=== PATIENT | female | born 1980 | race African-American/Black ===

== ENCOUNTER 2017-03-14 23:40 | Inpatient (IN) | payer OTHER ==
[~2017-03-14 23:40] MED LIST: CITRIC ACID/SODIUM CITRATE 30 ML UNIT-DOSE CUP PO ONE; ELECTROLYTE-148 SOLN 500 ML IV ONE
[2017-03-15] MEDS ORDERED: ELECTROLYTE-148 SOLN 1,000 ML IV SCH (00:09)
[2017-03-15 01:30] VITALS: BMI 27.1
[2017-03-15] MEDS ORDERED: ZIDOVUDINE INJECTION 1,000 MG in DEXTROSE 5%-WATER - 150 ML IVPB SCH ×2 (05:00→05:31)
[2017-03-15] MEDS ORDERED: ONDANSETRON 4 MG/2 ML VIAL IVPB PRN (09:51)
[2017-03-15] MEDS ORDERED: BENZOCAINE 20% 57 GM BOTTLE TP PRN (09:53)
[2017-03-15] MEDS ORDERED: ACETAMINOPHEN 1000 MG/100 ML VIAL (NON FORMULARY) IVPB PRN (09:53)
[2017-03-15] MEDS ORDERED: diphenhydrAMINE HCL 25 MG CAPSULE (FP) PO PRN (09:53)
[2017-03-15] MEDS ORDERED: IBUPROFEN 600 MG TABLET (FP) PO PRN (09:53)
[2017-03-15] MEDS ORDERED: IBUPROFEN 800 MG/8 ML IJ IVPB PRN ×2 (09:53)
[2017-03-15] MEDS ORDERED: BENZOCAINE 28 GM HEMORRHOIDAL OINTMENT PR PRN (09:53)
[2017-03-15] MEDS ORDERED: WITCH HAZEL 50% (TUCKS) 40 PAD/JAR PAD TP PRN (09:53)
[2017-03-15] MEDS ORDERED: METHYLERGONOVINE MALEATE 0.2 MG/1 ML AMP IM PRN (09:53)
[2017-03-15] MEDS ORDERED: SIMETHICONE 80 MG TAB.CHEW (FP) PO PRN (09:53)
[2017-03-15] MEDS ORDERED: RALTEGRAVIR POTASSIUM 400 MG TAB PO SCH (10:00)
[2017-03-15] MEDS ORDERED: FOSAMPRENAVIR CALCIUM 700 MG TABLET PO SCH (10:00)
[2017-03-15] MEDS ORDERED: OXYTOCIN 20 UNITS in 0.9% NS 1,000 ML IV SCH (10:00)
--- NOTE | 2017-03-15 10:09 | HP ---
Past Medical History - Primary Care Physician PCP:: Guille Penn - Admission Chief Complaint: 39 weeks, previous c/s , ama, hiv positve , request of repeat c/s History of Present Illness: 36 yo f 012 edc 03/21/17 39 weeks, previous c/s , hiv positive, requesting repeat c/s, risks discussed, encouraged, declined aware all risks associated with c/s History Source: Patient Limitations to Obtaining History: No Limitations - Past Medical History ...: 4 ...Para: 2 ...Term: 2 ...: 0 ...Spon : 0 ...Induced : 1 ...Multiple Gestation: 0 ...LMP: 06/05/16 ... Weeks Gestation by Dates: 40 ...EDC by Dates: 03/12/17 ...EDC by Sono: 03/21/17 Infectious Disease: Yes: HIV, STD's (txed for chalmydia in the past) - Past Surgical History Past Surgical History: Yes: Hx Myomectomy: No Hx Transabdominal Cerclage: No - Smoking History Smoking history: Never smoked Have you smoked in the past 12 months: No Aproximately how many cigarettes per day: 3 If you are a former smoker, when did you quit?: Approx. 1 year ago. - Alcohol/Substance Use Hx Alcohol Use: No - Social History Usual Living Arrangement: Yes: With Spouse History of Recent Travel: No Home Medications - Allergies Allergies/Adverse Reactions: Allergies Allergy/AdvReac Type Severity Reaction Status Date / Time No Known Allergies Allergy Verified 03/15/17 00:41 - Home Medications Home Medications: Ambulatory Orders Vit Calc,Iron,Folic [ Vitamins] 1 each PO DAILY #30 tablet Emtricitabine/Tenofovir [Truvada -] 1 tab PO DAILY #30 tablet 02/24/17 Raltegravir [Isentress] 400 mg PO BID #60 tab 02/24/17 Fosamprenavir Calcium [Lexiva -] 1,400 mg PO BID 03/15/17 Family Disease History - Family Disease History Family Disease History: Other: Grandparent (unk), Father (a&w, htn - stable), Mother (hiv), Brother (6 a&w), Sister (4 a&w), Son (1 a&w), Daughter (1 a&w) Review of Systems - Review of Systems Constitutional: reports: No Symptoms Eyes: reports: No Symptoms HENT: reports: No Symptoms Neck: reports: No Symptoms Cardiovascular: reports: No Symptoms Respiratory: reports: No Symptoms Gastrointestinal: reports: No Symptoms Genitourinary: reports: No Symptoms Breasts: reports: No Symptoms Reported Musculoskeletal: reports: No Symptoms Integumentary: reports: No Symptoms Neurological: reports: No Symptoms Endocrine: reports: No Symptoms Psychiatric: reports: No Symptoms Physical Exam - Maternity Vital Signs: Vital Signs Temperature 98.0 F 03/15/17 05:35 Pulse Rate 67 03/15/17 07:00 Respiratory Rate 20 03/15/17 07:00 Blood Pressure 120/74 03/15/17 07:00 O2 Sat by Pulse Oximetry (%) Constitutional: Yes: Well Nourished, No Distress, Calm Eyes: Yes: WNL, Conjunctiva Clear, EOM Intact HENT: Yes: WNL, Atraumatic, Normocephalic Neck: Yes: WNL, Supple, Trachea Midline Cardiovascular: Yes: WNL, Regular Rate and Rhythm Breast(s): Yes: WNL - Abdominal Exam/OB Fundal Height: 40 Number of Fetuses: Single Presentation: Vertex Contractions: No Intensity: Unaware Monitor Mode: External Heart Rate Location: [facility] Category: I Accelerations: Uniform Decelerations: None - Vaginal Exam/OB Vaginal Bleediing: No Speculum Exam: No Dilatation (cm): closed Effacement (%): 0 Amniotic Membrane Status: Intact Presentation: Vertex/Position Station: -3 - Physical Exam Musculoskeletal: Yes: WNL Extremities: Yes: WNL Edema: Yes Edema: LLE: Trace, RLE: Trace Psychiatric: Yes: WNL Hemorrhage Risk Assessment - Risk Factors Medium Risk Factors: Yes: Prior , uterine surgery,or multiple laparotomies Risk Score: 1 Risk Level: Medium Risk Problem List - Problems (1) with 39 completed weeks gestation Code(s): Z3A.39 - 39 WEEKS GESTATION OF (2) Previous section Code(s): Z98.891 - HISTORY OF UTERINE SCAR FROM PREVIOUS SURGERY (3) HIV (human immunodeficiency virus) risk factors complicating Code(s): O09.899 - SUPERVISION OF OTHER HIGH RISK PREGNANCIES, UNSP TRIMESTER Assessment/Plan antiviral meds preop, repeat c/s rba discussed
--- NOTE | 2017-03-15 10:15 | SURG ---
Surgery Splunk Developer Note Splunk Developer: Keith Marsh PA-C Date of Service: 03/15/17 Diagnosis: 39 weeks, previous c/s , hiv positive, requesting repeat c/s Procedure: section I was present for the entirety of the operative procedure. For further detail, please refer to operative report. Visit type - Case Type Case Type: Scheduled Admission - New patient This patient is new to me today: Yes Date on this admission: 03/15/17
[2017-03-15] MEDS: PRENATAL VITAMINS W/ FOLIC ACID TABLET (FP) PO SCH (12:56)
[2017-03-15] MEDS: EMTRICITABINE 200MG/TENOFOVIR 300MG PO SCH (12:56)
--- NOTE | 2017-03-15 15:55 | PN ---
Progress Note (short form) - Note Progress Note: ID consult dictated imp/reccd 36 year old female HIV positive admitted for elective she has been taking truvada/isentress/kaletra and her viral load is suppressed please resume her HIV meds no breast feeding follow up [facility]
[2017-03-15] MEDS: CEFAZOLIN (PRE-DOCKED) 50 ML IVPB SCH (17:41)
[2017-03-15] MEDS ORDERED: DEXTROSE 5%-LACTATED RINGERS 1,000 ML IV SCH (18:00)
--- NOTE | 2017-03-15 18:23 | CONS ---
DATE OF CONSULTATION: DATE OF DICTATION: 03/15/2017 INFECTIOUS DISEASE CONSULTATION REQUESTING PHYSICIAN: Guille Penn M.D. CONSULTING PHYSICIAN: Erin Monae M.D. HISTORY OF PRESENT ILLNESS: This is a 36-year-old woman with stable HIV disease who I follow in the clinic. She was just admitted this morning and is status post . I am asked to see her for resumption of her antiretroviral therapy. She has done very well through the . She has been on Kaletra, Isentress, and Truvada with a CD4 count of 378 and an undetectable viral load as of February 24, 2017. Post she is resting comfortably. She has no complaints. She notes some mild itching due to the morphine that she received at the time of , otherwise she is feeling fine. PAST MEDICAL HISTORY: Notable for stable HIV disease. She has a history of chlamydia in the past. She had a prior child, she has had a . She has 2 children, both of whom at home are HIV negative. She has no known drug allergies. Her medications as an outpatient include vitamins, Truvada, Isentress, and Kaletra. SOCIAL HISTORY: She lives with her significant other. She has 2 children. She does not use cigarettes. She has no history of any substance use. She stopped smoking about a year ago. FAMILY HISTORY: Positive for HIV in her mother. Her father is alive and well with hypertension. Her children are in good health and are HIV negative. REVIEW OF SYSTEMS: She currently reports some mild itching, otherwise feels fine. PHYSICAL EXAMINATION: General: She is awake and alert. Vital signs: Temperature 97.6, pulse 66, blood pressure 117/73, respiratory rate 20. HEENT: Normocephalic. Eyes are anicteric. Neck: Supple. Lungs: Clear to auscultation. Heart: Regular rate and rhythm. Abdomen: She is receiving Pitocin. I did not do an abdominal exam. Extremities: Trace edema. LABORATORY: Her white count is 10.2, hemoglobin 11.5, platelets 250, BUN and creatinine are 10 and 0.7. Her T cells as stated are 378 with an undetectable viral load. IMPRESSION: In summary, this is a 36-year-old woman with stable human immunodeficiency virus disease, undetectable viral load, on antiretroviral treatment. I would recommend we resume her human immunodeficiency virus medications, no of which she is aware, and she has scheduled followup. Thank you for this referral. ERIN MONAE M.D. [id number] MTDD
[2017-03-16] MEDS: CEFAZOLIN (PRE-DOCKED) 50 ML IVPB SCH (01:27)
--- NOTE | 2017-03-16 01:46 | OP ---
DATE OF OPERATION: 03/15/2017 PREOPERATIVE DIAGNOSIS: at 39 weeks, previous section, history of HIV-positive, requests repeat section. POSTOPERATIVE DIAGNOSIS: at 39 weeks, previous section, history of HIV-positive, requests repeat section. PROCEDURE: Repeat low segment transverse section. SURGEON: Varun Mena MD SENIOR ATTORNEY: QI Bah ESTIMATED BLOOD LOSS: 500 mL. FINDINGS: Live baby girl, right occiput transverse position. OPERATION: Patient was taken to the operating room and under adequate spinal anesthesia the abdomen and perineum were prepped and draped. Pfannenstiel abdominal incision was made over the previous incision. Abdominal wall was cut layer by layer and the anterior peritoneum was exposed and incised. Upon entering the abdominal cavity, the lower uterine segment was identified. The uterovesical fold in the peritoneum was established. Bladder was pushed down and a low transverse uterine incision was made. The incision was extended laterally. Amniotic sac was entered with clear fluids. Head was brought from right occiput transverse position and delivered without any difficulty. The nasopharynx was suctioned and live baby was delivered. 's of 9 and 10. Placenta was delivered manually. Uterine cavity was cleared of all remaining tissue. Uterine incision was closed in 2 layers, first layer with 0 Biosyn continuous suture and the second layer with 0 Biosyn imbricating the first layer. Bladder flap was closed with 0 Biosyn continuous suture. Both tubes and ovaries were seen and normal. No active bleeding was seen. All of the lap pads, sponge, and instrument counts were correct. The peritoneum was closed with 0 Biosyn continuous suture. Muscles were brought together with interrupted suture of 0 Biosyn. The fascia was closed with 0 Biosyn continuous suture. Subcutaneous fat interrupted suture of 3-0 Vicryl and the skin was closed with 4-0 Biosyn subcuticular continuous suture. Patient tolerated the procedure well and left the OR in good condition. VARUN MENA M.D. /[id number]
--- NOTE | 2017-03-16 08:38 | PN ---
Post Progress Note - Subjective Subjective: c/o pain scale 3/10 voiding without difficulty Post Day: 1 Type of Delivery: Repeat C/S Vital Signs: Vital Signs Temperature 98.4 F 03/16/17 05:29 Pulse Rate 69 03/16/17 05:29 Respiratory Rate 18 03/16/17 05:45 Blood Pressure 127/67 03/16/17 05:29 O2 Sat by Pulse Oximetry (%) 100 03/15/17 11:00 Breast Exam: Yes: Soft, Other (bottle feeding ). No: Engorged Uterus: Yes: Fundus Firm, Fundus below umbilicus, Non-tender Incision: Yes: Dressing dry and intact. No: Redness, Oozing Abdomen/GI: Yes: Abdomen soft, Passing flatus, Tolerating PO (diet ). No: Abdominal Distention, Tender Lochia: Yes: Rubra Lochia, amount: Moderate Extremities: Yes: Calves non-tender Perineum: Yes: Intact Activity: Ambulating Assessment/Plan stable . post op cbc pending. antiviral meds as per MD for Infectious disease.
[2017-03-16 08:49] LABS: BASOPHIL 0.1 % (0-2.0); EOSINOPHIL 0.2 % (0-4.5); MCH 27.3 pg (25.7-33.7); MCHC 32.9 g/dl (32.0-36.0); MEAN CELL VOLUME 83.2 fl (80-96); MEAN PLT VOLUME 8.3 fl (7.5-11.1); NEUTROPHILS 76.8 % (42.8-82.8); PLATELET COUNT 186 K/MM3 (134-434); RDW 13.9 % (11.6-15.6); WHITE BLOOD COUNT 11.8 K/mm3 (4.0-10.0)
[2017-03-16] MEDS ORDERED: BISACODYL 10 MG SUPP.RECT RC PRN (09:58)
[2017-03-16] MEDS: RITONAVIR/LOPINAVIR 50MG/200MG 1 COMBO TABLET PO SCH ×2 (10:33→21:21)
[2017-03-16] MEDS: ENOXAPARIN NA (PORCINE) 40 MG/0.4 ML DISP.SYRIN SQ SCH (10:34)
[2017-03-16] MEDS: EMTRICITABINE 200MG/TENOFOVIR 300MG PO SCH (10:34)
[2017-03-16] MEDS: PRENATAL VITAMINS W/ FOLIC ACID TABLET (FP) PO SCH (10:34)
[2017-03-16] MEDS: RALTEGRAVIR POTASSIUM 400 MG TAB PO SCH ×2 (10:34→21:21)
[2017-03-16] MEDS: oxyCODONE HCL 5 MG TABLET PO PRN ×3 (10:42→21:20)
--- NOTE | 2017-03-16 11:07 | PN ---
Progress Note (short form) - Note Progress Note: Post op day#1.S/P C section under spinal anesthesia with duramorph uneventful.Patient stable and has little pain for which she is on medication.No any anesthesia related problem.Patient Dc from the anesthesia care.
--- NOTE | 2017-03-17 06:27 | PN ---
Post Progress Note Post Day: 3 Type of Delivery: Repeat C/S Vital Signs: Vital Signs Temperature 98.9 F 03/16/17 22:00 Pulse Rate 90 03/16/17 22:00 Respiratory Rate 18 03/16/17 22:00 Blood Pressure 126/76 03/16/17 22:00 O2 Sat by Pulse Oximetry (%) 100 03/15/17 11:00 Breast Exam: Yes: Soft Uterus: Yes: Fundus Firm Incision: Yes: Sutures intact Abdomen/GI: Yes: Abdomen soft Lochia: Yes: Rubra Lochia, amount: Small Extremities: Yes: Calves non-tender Perineum: Yes: Intact Activity: Ambulating - Labs Labs: CBC WBC 11.8 K/mm3 (4.0-10.0) H 03/16/17 07:45 RBC 3.69 M/mm3 (3.60-5.2) 03/16/17 07:45 Hgb 10.1 GM/dL (10.7-15.3) L D 03/16/17 07:45 Hct 30.7 % (32.4-45.2) L 03/16/17 07:45 MCV 83.2 fl (80-96) 03/16/17 07:45 MCHC 32.9 g/dl (32.0-36.0) 03/16/17 07:45 RDW 13.9 % (11.6-15.6) 03/16/17 07:45 Plt Count 186 K/MM3 (134-434) 03/16/17 07:45 MPV 8.3 fl (7.5-11.1) 03/16/17 07:45 Neutrophils % 76.8 % (42.8-82.8) 03/16/17 07:45 Lymphocytes % 15.2 % (8-40) 03/16/17 07:45 Monocytes % 7.7 % (3.8-10.2) 03/16/17 07:45 Eosinophils % 0.2 % (0-4.5) 03/16/17 07:45 Basophils % 0.1 % (0-2.0) 03/16/17 07:45 Assessment/Plan doing well appreciate consult form ID pain control [email or web address]
[2017-03-17] MEDS: ENOXAPARIN NA (PORCINE) 40 MG/0.4 ML DISP.SYRIN SQ SCH (09:13)
[2017-03-17] MEDS: PRENATAL VITAMINS W/ FOLIC ACID TABLET (FP) PO SCH (09:14)
[2017-03-17] MEDS: oxyCODONE HCL 5 MG TABLET PO PRN (09:14)
[2017-03-17] MEDS: RITONAVIR/LOPINAVIR 50MG/200MG 1 COMBO TABLET PO SCH ×2 (09:17→22:07)
[2017-03-17] MEDS: EMTRICITABINE 200MG/TENOFOVIR 300MG PO SCH (09:18)
[2017-03-17] MEDS: RALTEGRAVIR POTASSIUM 400 MG TAB PO SCH ×2 (09:18→22:07)
[2017-03-17] MEDS ORDERED: SENNOSIDES/DOCUSATE COMBO (SENNA PLUS) TABLET (UD) PO PRN (22:00)
--- NOTE | 2017-03-18 05:22 | PN ---
Progress Note (short form) - Note Progress Note: pod3 doing well, voids ok, passing gas CBC, BMP 03/16/17 07:45 Last Vital Signs Temp Pulse Resp BP Pulse Ox 98.3 F 84 20 113/65 100 03/17/17 21:12 03/17/17 21:12 03/17/17 21:12 03/17/17 21:12 03/15/17 11:00 abdomen soft, no distension, no cva incision dry, clean no calf tenderness plan cbc today, plan for d/c home in am Problem List - Problems (1) with 39 completed weeks gestation Code(s): Z3A.39 - 39 WEEKS GESTATION OF (2) Previous section Code(s): Z98.891 - HISTORY OF UTERINE SCAR FROM PREVIOUS SURGERY (3) HIV (human immunodeficiency virus) risk factors complicating Code(s): O09.899 - SUPERVISION OF OTHER HIGH RISK PREGNANCIES, UNSP TRIMESTER
[2017-03-18 06:29] LABS: BASOPHIL 0.3 % (0-2.0); EOSINOPHIL 1.5 % (0-4.5); MCH 27.2 pg (25.7-33.7); MCHC 32.5 g/dl (32.0-36.0); MEAN CELL VOLUME 83.8 fl (80-96); MEAN PLT VOLUME 8.1 fl (7.5-11.1); NEUTROPHILS 70.4 % (42.8-82.8); PLATELET COUNT 242 K/MM3 (134-434); WHITE BLOOD COUNT 7.9 K/mm3 (4.0-10.0)
[2017-03-18] MEDS: PRENATAL VITAMINS W/ FOLIC ACID TABLET (FP) PO SCH (09:28)
[2017-03-18] MEDS: RITONAVIR/LOPINAVIR 50MG/200MG 1 COMBO TABLET PO SCH ×2 (09:29→21:28)
[2017-03-18] MEDS: EMTRICITABINE 200MG/TENOFOVIR 300MG PO SCH (09:29)
[2017-03-18] MEDS: RALTEGRAVIR POTASSIUM 400 MG TAB PO SCH ×2 (09:36→21:28)
[2017-03-18] MEDS: ENOXAPARIN NA (PORCINE) 40 MG/0.4 ML DISP.SYRIN SQ SCH (09:37)
--- NOTE | 2017-03-19 08:16 | PN ---
Post Progress Note - Subjective Subjective: no complains , pain scale 1 Post Day: 4 Type of Delivery: Repeat C/S Vital Signs: Vital Signs Temperature 98.1 F 03/18/17 22:00 Pulse Rate 69 03/18/17 22:00 Respiratory Rate 18 03/18/17 22:00 Blood Pressure 119/76 03/18/17 22:00 O2 Sat by Pulse Oximetry (%) 100 03/15/17 11:00 Breast Exam: Yes: Soft. No: Engorged Uterus: Yes: Fundus Firm, Fundus below umbilicus, Non-tender Incision: Yes: Sutures intact. No: Redness, Oozing Abdomen/GI: Yes: Abdomen soft, Passing flatus (bm done ), Tolerating PO (diet ) . No: Abdominal Distention, Tender Lochia: Yes: Rubra Lochia, amount: Moderate Extremities: Yes: Calves non-tender Perineum: Yes: Intact Activity: Ambulating - Labs Labs: CBC WBC 7.9 K/mm3 (4.0-10.0) D 03/18/17 05:50 RBC 4.04 M/mm3 (3.60-5.2) 03/18/17 05:50 Hgb 11.0 GM/dL (10.7-15.3) 03/18/17 05:50 Hct 33.9 % (32.4-45.2) 03/18/17 05:50 MCV 83.8 fl (80-96) 03/18/17 05:50 MCHC 32.5 g/dl (32.0-36.0) 03/18/17 05:50 RDW 14.0 % (11.6-15.6) 03/18/17 05:50 Plt Count 242 K/MM3 (134-434) D 03/18/17 05:50 MPV 8.1 fl (7.5-11.1) 03/18/17 05:50 Neutrophils % 70.4 % (42.8-82.8) 03/18/17 05:50 Lymphocytes % 20.3 % (8-40) D 03/18/17 05:50 Monocytes % 7.5 % (3.8-10.2) 03/18/17 05:50 Eosinophils % 1.5 % (0-4.5) D 03/18/17 05:50 Basophils % 0.3 % (0-2.0) 03/18/17 05:50 Assessment/Plan stable. plan discharge today.
[2017-03-19] MEDS: EMTRICITABINE 200MG/TENOFOVIR 300MG PO SCH (09:23)
[2017-03-19] MEDS: RITONAVIR/LOPINAVIR 50MG/200MG 1 COMBO TABLET PO SCH (09:23)
[2017-03-19] MEDS: PRENATAL VITAMINS W/ FOLIC ACID TABLET (FP) PO SCH (09:23)
[2017-03-19] MEDS: RALTEGRAVIR POTASSIUM 400 MG TAB PO SCH (09:24)
[2017-03-19] MEDS: ENOXAPARIN NA (PORCINE) 40 MG/0.4 ML DISP.SYRIN SQ SCH (11:37)
[2017-03-19 11:44] VITALS: BP 110/71; PULSE 90; TEMP 98.4
--- NOTE | 2017-03-22 14:37 | PATH ---
Surgical Pathology Report Patient Name: KAILYN DASH Med. Rec. 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 Specimen(s) Received PLACENTA Clinical History HIV-positive Final Diagnosis PLACENTA, DELIVERY: FOCALLY DISRUPTED THIRD TRIMESTER PLACENTA WITH THREE VESSEL UMBILICAL CORD AND UNREMARKABLE PLACENTAL MEMBRANES. Electronically Signed Bud Ramos M.D. Gross Description The specimen is received fresh labeled placenta and is a 519 gram, 16.5 x 15.0 x 3.4 cm. placenta with attached membranes and umbilical cord. The attached membranes are escalante, translucent with focal opacities and insert marginally. The umbilical cord measures 28 cm. in length and averages 1.3 cm. in diameter. The cord inserts eccentrically, 2 cm. to the nearest margin. No true knots or strictures are identified. Cut surface of the umbilical cord reveals 3 vessels. The surface is romero-blue with minimal fibrin deposition and appropriate caliber vessels. The maternal surface is red-brown with focal defects. Sectioning reveals red-brown, spongy parenchyma. No lesions are identified. B2B Sales Manager sections are submitted in three cassettes as follows: 1- membrane rolls and umbilical cord; 2-3- full thickness sections of placenta. /03/21/2017 [facility]03/21/2017
== END 2017-03-19 13:00 | disposition home or self-care (01) | DRG 540 ==
LOC: JLDR 23:40 → J3W 03-15 11:33
PROVIDERS: ADMIT Obstetrics & Gynecology; ATTEND Obstetrics & Gynecology
PROC: 10D00Z1 Extraction of Products of Conception, Low, Open Approach (ICD-10-PCS; principal; 2017-03-15)
DX: O34.211 Maternal care for low transverse scar from previous cesarean delivery (principal); O98.72 Human immunodeficiency virus [HIV] disease complicating childbirth; Z3A.39 39 weeks gestation of pregnancy; Z37.0 Single live birth; Z21 Asymptomatic human immunodeficiency virus [HIV] infection status
CPT/HCPCS: 36415; 85025; 88307-TC

== ENCOUNTER → 2019-07-24 | Outpatient (CLI) | payer OTHER | LOC: YHH 11:33 ==

== ENCOUNTER 2020-10-11 11:33 | Emergency (ER) | payer OTHER ==
[2020-10-11 11:54] VITALS: BP 130/80; PULSE 84; TEMP 99; BMI 23.0
== END 2020-10-11 12:14 | disposition home or self-care (01) ==
LOC: FER 11:33
DX: L50.9 Urticaria, unspecified (principal)
CPT/HCPCS: 99282-25